=== PATIENT | female | born 1995 | race Caucasian/White ===

== ENCOUNTER 2017-10-26 19:00 | Emergency (ER) | payer OTHER ==
[2017-10-26] MEDS ORDERED: Famotidine/PF 20 mg/2ml Vial ONE (19:39)
== END 2017-10-26 20:46 | disposition home or self-care (01) ==
LOC: ERS 19:00
DX: T78.1XXA Other adverse food reactions, not elsewhere classified, initial encounter (principal); F41.9 Anxiety disorder, unspecified
CPT/HCPCS: 96374; S0028